=== PATIENT | female | born 1940 | race Asian ===

== ENCOUNTER 2019-06-23 12:18 | Emergency (ER) | payer MEDICARE, OTHER ==
[~2019-06-23] VITALS: Ht 160 cm; Wt 62.8 kg
[~2019-06-23 12:18] MED LIST: ACET500C5 PO; ALPR1TAB7 PO; AMLO-147 PO; ATOR20TA38 PO; DOCU-144 PO; FAMO-96 PO; FAMO20TA18 PO; GABA400C14 PO; HYDR-3498 PO; LOPE2CAP PO; LOSA100T15 PO; MAG355OR15 PO; MECL12.574 PO; MELA3TAB17 PO; NAPR-688 PO; ONDA4TAB14 PO; ONDA4TAB35 PO; OXYC-281 PO; PANT40TA4 PO; POLY17PO6 PO; PROC5TAB9 PO; ZOLP10TA5 PO
[2019-06-23 12:45] VITALS: Ht 160 cm; Wt 62.8 kg
[2019-06-23] MEDS ORDERED: ONDANSETRON 4 MG INJ IV STA (16:01)
[2019-06-23] MEDS ORDERED: SOD CHLORIDE 0.9% 1,000 ML IV STA (16:01)
[2019-06-23] MEDS ORDERED: LOPERAMIDE 2 MG CAP PO ONE (16:30)
[2019-06-23 17:15] VITALS: BP 145/73; PULSE 84; RESP 18
== END 2019-06-23 17:37 | disposition home or self-care (01) ==
LOC: E/R 12:18
DX: R11.2 Nausea with vomiting, unspecified (principal); R19.7 Diarrhea, unspecified; I10 Essential (primary) hypertension; Z95.0 Presence of cardiac pacemaker
CPT/HCPCS: 36415; 80053; 83690; 85025; 96361; 96374; 99284; J2405; J7030

== ENCOUNTER 2019-08-24 07:32 | Emergency (ER) | payer MEDICARE, OTHER ==
[~2019-08-24] VITALS: Ht 152.4 cm; Wt 60.2 kg
[~2019-08-24 07:32] MED LIST changes: +CIPR500T4 PO; -DOCU-144 PO; -FAMO-96 PO; -FAMO20TA18 PO; -HYDR-3498 PO; -MAG355OR15 PO; -MECL12.574 PO; +METR500T PO; -NAPR-688 PO; -ONDA4TAB35 PO; -OXYC-281 PO; -PROC5TAB9 PO; +SERT50TA6 PO; -ZOLP10TA5 PO
[2019-08-24 07:37] VITALS: Ht 152.4 cm; Wt 60.2 kg
[2019-08-24] MEDS ORDERED: SOD CHLORIDE 0.9% 500 ML IV STA (08:02)
[2019-08-24] MEDS ORDERED: IODIXANOL LOCM 100 ML BTL ONE (09:15)
[2019-08-24] MEDS ORDERED: SOD CHLORIDE 0.9% 100 ML ONE (09:15)
[2019-08-24 12:04] VITALS: BP 151/71; PULSE 99; RESP 20
== END 2019-08-24 12:04 | disposition home or self-care (01) ==
LOC: E/R 07:32
DX: K57.30 Diverticulosis of large intestine without perforation or abscess without bleeding (principal); I10 Essential (primary) hypertension; R40.2142 Coma scale, eyes open, spontaneous, at arrival to emergency department; R40.2362 Coma scale, best motor response, obeys commands, at arrival to emergency department; R40.2252 Coma scale, best verbal response, oriented, at arrival to emergency department; Z95.0 Presence of cardiac pacemaker
CPT/HCPCS: 74177; 80053; 81001; 83690; 85025; J7040; Q9967; 36415